=== PATIENT | female | born 1985 | race Two or more races ===

== ENCOUNTER 2019-01-29 23:56 | Emergency (ER) | payer OTHER ==
[~2019-01-29] VITALS: Ht 165.1 cm; Wt 90.7 kg
[2019-01-30 00:16] VITALS: BP 131/80
[2019-01-30] MEDS ORDERED: KETOROLAC TROMETH 60MG/2ML VIAL IM ONE (02:42)
== END 2019-01-30 03:13 | disposition home or self-care (01) ==
LOC: ER 23:58
DX: R51 Headache (principal); H53.149 Visual discomfort, unspecified
CPT/HCPCS: 81025; 96372; 99283; J1885